=== PATIENT | male | born 1980 | race Caucasian/White ===

== ENCOUNTER → 2021-11-16 10:34 | Outpatient (CLI) | payer OTHER, SELFPAY ==
[2021-11-16 11:52] LABS: BUN 27 mg/dL (7-18); BUN/Creat Ratio 14.1 RATIO (10-20); Calcium,Total 9.1 mg/dL (8.5-10.1); Chloride 109 mmol/L (98-107); Creatinine, Serum 1.91 mg/dL (0.70-1.30); EST Glomerular Filtration Rate 41 mL/min (>60); Est Glom Filt Rate - Afr Amer 50 mL/min (>60); Glucose 143 mg/dL (74-106); Phosphorus 2.9 mg/dL (2.5-4.9); Potassium 4.2 mmol/L (3.5-5.1); Sodium Level 140 mmol/L (136-145)
[2021-11-16 11:57] LABS: Hemoglobin A1c 7.5 % (3.8-5.6)
[2021-11-16 12:14] LABS: Protein, Urine (Random) 220.5 mg/dL (<11.9); Protein:Creat Ratio 1103 mg/g CRE (0-200)
== END ==
PROVIDERS: PCP Family Medicine
DX: E10.22 Type 1 diabetes mellitus with diabetic chronic kidney disease (principal); E10.49 Type 1 diabetes mellitus with other diabetic neurological complication; E10.65 Type 1 diabetes mellitus with hyperglycemia; N18.9 Chronic kidney disease, unspecified
CPT/HCPCS: 36415; 80069; 82570; 83036; 84156